=== PATIENT | male | born 1995 | race Caucasian/White ===

== ENCOUNTER 2017-05-09 11:16 | Emergency (ER) | payer SELFPAY ==
[~2017-05-09] VITALS: Ht 172.7 cm; Wt 72.5 kg
[2017-05-09 11:27] VITALS: Ht 172.7 cm; Wt 72.5 kg
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
[2017-05-09] MEDS ORDERED: IBUP-1542 PO (13:11)
== END 2017-05-09 15:11 | disposition home or self-care (01) ==
LOC: FTE 11:16
DX: S01.81XA Laceration without foreign body of other part of head, initial encounter (principal); S09.90XA Unspecified injury of head, initial encounter; F17.210 Nicotine dependence, cigarettes, uncomplicated; W25.XXXA Contact with sharp glass, initial encounter; Y92.9 Unspecified place or not applicable

== ENCOUNTER 2019-01-18 02:48 | Emergency (ER) | payer SELFPAY ==
[~2019-01-18] VITALS: Ht 172.7 cm; Wt 83.9 kg
[~2019-01-18 02:48] MED LIST: IBUP-1542 PO
[2019-01-18 02:52] VITALS: BP 143/92; PULSE 102; RESP 19; Ht 172.7 cm; Wt 83.9 kg
[2019-01-18] MEDS ORDERED: IBUP800T48 PO (06:44)
[2019-01-18] MEDS ORDERED: AMOX1TAB10 PO (06:44)
[2019-01-18] MEDS ORDERED: CEFTRIAXONE 1 GM INJ IM ONE (07:00)
[2019-01-18] MEDS ORDERED: LIDOCAINE 1% (MPF) 5 ML VIAL INJ ONE (07:00)
--- NOTE | 2019-01-18 08:05 | ERD ---
ER Documentation Chief Complaint Chief Complaint C/O ST X5 DAYS HPI 23 yr old male complaining of sore throat x 5 days. Tactile fevers. Has not taken medication today for symptoms. No cough and no runny nose. Medical history is gastritis. NKDA. Surgical history denies. 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 ROS All systems reviewed and are negative except as per history of present illness. Medications Home Meds Active Scripts Ibuprofen* (Motrin*) 800 Mg Tab, 800 MG PO Q6, #30 TAB Prov:GINO WOODS PA-C 01/18/19 Amoxicillin/Potassium Clav (Amox-Clav 875-125 mg Tablet) 875-125 mg Tab, 1 TAB PO BID for 7 Days, #14 TAB Prov:GINO WOODS PA-C 01/18/19 Ibuprofen* (Motrin*) 600 Mg Tab, 600 MG PO Q6, #30 TAB Prov:PAIGE DONIS PA-C 05/09/17 Allergies Allergies: Coded Allergies: No Known Allergy (Verified , 05/09/17) PMhx/Soc Medical and Surgical Hx: pt denies Medical Hx, pt denies Surgical Hx History of Surgery: No Anesthesia Reaction: No Hx Neurological Disorder: No Hx Respiratory Disorders: No Hx Cardiac Disorders: No Hx Psychiatric Problems: No Hx Miscellaneous Medical Probl: No Hx Alcohol Use: Yes (social) Hx Substance Use: No Hx Tobacco Use: Yes Smoking Status: Current every day smoker FmHx Family History: No diabetes, No coronary disease, No other Physical Exam Vitals Vital Signs Date Temp Pulse Resp B/P (MAP) Pulse Ox O2 O2 Flow FiO2 Time Delivery Rate 01/18/19 97.3 102 19 143/92 100 02:52 (109) Physical Exam GENERAL: The patient is well-appearing, well-nourished, in no acute distress HEENT: Atraumatic. Conjunctivae are pink. Pupils equal, round, and reactive to light. There is no scleral icterus. Tympanic membranes clear bilaterally. Oropharynx erythematous with exudate noted bilateral tonsils. Uvula midline. No uvular deviation. No nystagmus or photophobia. NECK: C-spine is soft and supple. There is no meningismus. There is no cervical lymphadenopathy. CHEST: Clear to auscultation bilaterally. There are no rales, wheezes or rhonchi. HEART: Regular rate and rhythm. No murmurs, clicks, rubs or gallops. Results 24 hrs Current Medications Medications Dose Sig/Mitra Start Time Status Last (Trade) Ordered Route PRN Stop Time Admin Dose Reason Admin Ceftriaxone 1 gm ONCE ONCE 01/18/19 DC 01/18/19 Sodium IM 07:00 06:58 (Rocephin) 01/18/19 07:01 Lidocaine 5 ml ONCE ONCE 01/18/19 DC 01/18/19 (Xylocaine INJ 07:00 06:58 1% (Mpf)) 01/18/19 07:01 Procedures/MDM ER course: Rocephin given IM. DM: 23-year-old male presenting with findings consistent with strep throat. Patient be treated with oral antibiotics. I have low suspicion for peritonsillar retropharyngeal abscess. Patient is discharged with stricter precautions and recommended to follow-up with primary care within 1-2 days for close evaluation. Patient is told if symptoms change or worsen to return immediately to the ER. All questions answered at discharge Departure Diagnosis: Primary Impression: Strep throat Condition: Stable Patient Instructions: Strep Throat Referrals: [facility] YOU HAVE RECEIVED A MEDICAL SCREENING EXAM AND THE RESULTS INDICATE THAT YOU DO NOT HAVE A CONDITION THAT REQUIRES URGENT TREATMENT IN THE EMERGENCY DEPARTMENT. FURTHER EVALUATION AND TREATMENT OF YOUR CONDITION CAN WAIT UNTIL YOU ARE SEEN IN YOUR DOCTORS OFFICE WITHIN THE NEXT 1-2 DAYS. IT IS YOUR RESPONSIBILITY TO MAKE AN APPOINTMENT FOR FOLOW-UP CARE. IF YOU HAVE A PRIMARY DOCTOR --you should call your primary doctor and schedule an appointment IF YOU DO NOT HAVE A PRIMARY DOCTOR YOU CAN CALL OUR PHYSICIAN REFERRAL HOTLINE AT IF YOU CAN NOT AFFORD TO SEE A PHYSICIAN YOU CAN CHOSE FROM THE FOLLOWING [facility] [address] [facility] [address] [facility] [address] [facility] [address] [facility] [address] [facility]. [facility]. [address] Additional Instructions: FOLLOW UP WITH YOUR PRIMARY CARE PHYSICIAN TOMORROW.Return to this facility if you are not improving as expected. GINO WOODS PA-C Jan 18, 2019 08:05
== END 2019-01-18 07:16 | disposition home or self-care (01) ==
LOC: FTE 02:48
DX: J02.0 Streptococcal pharyngitis (principal); F17.210 Nicotine dependence, cigarettes, uncomplicated
CPT/HCPCS: 96372; 99284; J0696